=== PATIENT | female | born 1990 | race Caucasian/White ===

== ENCOUNTER → 2017-12-11 11:27 | Outpatient (CLI) | payer OTHER, SELFPAY ==
--- NOTE | 2017-12-11 11:30 | US_ITS ---
STUDY: ABDOMINAL ULTRASOUND REASON FOR EXAM: Female, 27 years old. One-week history of right lower quadrant pain. TECHNIQUE: Transabdominal ultrasound was performed with real-time and static ruiz scale imaging. TECHNICAL QUALITY: Adequate. COMPARISON: None. FINDINGS: Liver: The liver measures 13.0 cm. There is normal echogenicity of the liver. The bile ducts are within normal limits. There is hepatic color flow. The direction of portal flow is hepatopetal. There is no demonstrated mass lesion. Portal vein measurement: Gallbladder: Normal distended gallbladder. The gallbladder wall measures 2.8 mm. There is a negative sonographic Sagastume's sign. There is no pericholecystic fluid. There are no gallstones. Common Bile Duct (C.B.D.): The common bile duct measures 4.3 mm. Pancreas: Normal size of the head, body and tail of the pancreas. There is normal echogenicity of the pancreas. There is no demonstrated pancreatic mass or cyst. Spleen: Normal size of the spleen. The spleen measures 9.0 cm x 3.6 cm x 3.3 cm. Right Kidney: Normal size of the right kidney. The right kidney measures 10.3 cm x 5.8 cm x 4.0 cm. Normal renal cortex. The right cortex measures 1.4 cm. There is no demonstrated renal mass or cyst. There is no right hydronephrosis. Left Kidney: Normal size of the left kidney. The left kidney measures 10.2 cm x 5.1 cm x 6.4 cm. Normal renal cortex. The left cortex measures 1.6 cm. There is no demonstrated renal mass or cyst. There is no left hydronephrosis. I suspect 3 small nonobstructive left intrarenal calculi. The largest measures 5 mm. Aorta: Unremarkable. I.V.C.: The IVC is patent. There is no ascites. US/Abdomen Complete IMPRESSION: Normal abdominal ultrasound examination. Findings suggestive of 3 tiny nonobstructive left intrarenal calculi. Electronically Signed: Stefan Clemons MD at 15:36 EST Tel [phone], Service support ,
--- NOTE | 2017-12-11 11:30 | US_ITS ---
STUDY: ULTRASOUND TRANSVAGINAL CLINICAL: Female, 27 years old. Pelvic pain TECHNIQUE: Transabdominal and Transvaginal real-time exam with ruiz scale image documentation. Limited Doppler color flow. COMPARISON: Abdominal ultrasound of December 11, 2017. FINDINGS: Normal uterine size measuring 9 cm in maximal craniocaudal dimension. There are no myometrial masses. Normal endometrial thickness measuring 7.1 mm. There are no endometrial masses, and there is no fluid in the endometrial cavity. Normal uterine cervix. The right ovary measures 4.0 x 4.1 x 3.2 cm with a 2.3 x 2.7 x 2.0 cm complex cyst. Normal Doppler exam. The left ovary is 3.7 x 2.8 x 2.6 cm without mass or dominant cyst. Multiple normal follicles. Normal Doppler exam. No adnexal masses or free fluid. Unremarkable urinary bladder. US/Transvaginal Non- IMPRESSION: Normal uterus. There is a 2.3 x 2.7 x 2.0 cm complex/hemorrhagic cyst of the right ovary. Normal left ovary. No adnexal masses or free fluid. Electronically Signed: Franca Abarca MD at 15:33 EST , Service support ,
--- NOTE | 2017-12-11 11:30 | US_ITS ---
STUDY: ULTRASOUND TRANSVAGINAL CLINICAL: Female, 27 years old. Pelvic pain TECHNIQUE: Transabdominal and Transvaginal real-time exam with ruiz scale image documentation. Limited Doppler color flow. COMPARISON: Abdominal ultrasound of December 11, 2017. FINDINGS: Normal uterine size measuring 9 cm in maximal craniocaudal dimension. There are no myometrial masses. Normal endometrial thickness measuring 7.1 mm. There are no endometrial masses, and there is no fluid in the endometrial cavity. Normal uterine cervix. The right ovary measures 4.0 x 4.1 x 3.2 cm with a 2.3 x 2.7 x 2.0 cm complex cyst. Normal Doppler exam. The left ovary is 3.7 x 2.8 x 2.6 cm without mass or dominant cyst. Multiple normal follicles. Normal Doppler exam. No adnexal masses or free fluid. Unremarkable urinary bladder. US/Pelvic (Non ) IMPRESSION: Normal uterus. There is a 2.3 x 2.7 x 2.0 cm complex/hemorrhagic cyst of the right ovary. Normal left ovary. No adnexal masses or free fluid. Electronically Signed: Franca Abarca MD at 15:33 EST , Service support ,
[2017-12-11 20:26] LABS: Chlamydia Trachomatis by PCR Negative (Negative); Neisserai gonorrhoeae by PCR Negative (Negative); Probe Check PASS; Sample Adequacy Control PASS; Specimen Processing Control PASS
== END ==
PROVIDERS: Visit Provider Nurse Practitioner Women's Health
DX: N89.8 Other specified noninflammatory disorders of vagina (principal); R10.2 Pelvic and perineal pain
CPT/HCPCS: 76700; 76830; 76856; 87070; 87077; 87205; 87491; 87591; 93976